=== PATIENT | male | born 1995 | race Hispanic/Latino ===

== ENCOUNTER 2019-07-28 22:46 | Emergency (ER) | payer MEDICAID ==
[~2019-07-28] VITALS: Ht 175.3 cm; Wt 56.7 kg
[2019-07-28] MEDS ORDERED: CYCLOBENZAPRINE10 MG PO (23:25)
[2019-07-28] MEDS ORDERED: TRAMADOL HCL50 MG PO (23:25)
== END 2019-07-28 23:52 | disposition home or self-care (01) ==
LOC: ED 22:46
DX: S29.012A Strain of muscle and tendon of back wall of thorax, initial encounter (principal); F17.200 Nicotine dependence, unspecified, uncomplicated; Z91.041 Radiographic dye allergy status; X58.XXXA Exposure to other specified factors, initial encounter
CPT/HCPCS: 73030; 96372; 99283; J1885

== ENCOUNTER 2019-07-31 15:27 | Emergency (ER) | payer MEDICAID ==
[~2019-07-31] VITALS: Ht 175.3 cm; Wt 56.7 kg
[~2019-07-31 15:27] MED LIST: CYCLOBENZAPRINE10 MG PO; TRAMADOL HCL50 MG PO
--- OUTSIDE RECORDS SUMMARY | 2019-07-31 15:30 | XMS ---
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 No recent Security Events currently on file CRITERIA MET - [facility] - 2 Visits in 30 Days CARE PROVIDERS Pamela Fisher/[facility] PHONE: [phone] [facility] 06/07/2019-[facility] - [place] PHONE: [phone] BRITT[facility] 05/01/2019-[facility] PRIMARY CARE PHONE: [phone] [facility] Care 06/07/2019-[facility] GROUP - [facility] PHONE: Unknown [facility] Primary Care 05/01/2019-Current PRIMARY CARE [facility]ANY PHONE: [phone] [facility] Other 08/15/2013-[facility] [place] PHONE: Unknown SPENSER Marquez or [employer] Current PHONE: Unknown Lizzy has no Care Guidelines for this patient. Tereso VISIT COUNT (12 MO.) 2 [facility] TOTAL 2 NOTE: Visits indicate total known visits. ED/UCC VISIT TRACKING (12 MO.) 07/31/2019 15:28 [facility] [place] TYPE: Emergency COMPLAINT: - MEDICAL CLEARANCE 07/28/2019 22:46 [facility] [place] TYPE: Emergency COMPLAINT: - SHOULDER PAIN INPATIENT VISIT TRACKING (12 MO.) No inpatient visits to display in this time frame [email or web address]
[2019-07-31] MEDS ORDERED: NEURONTIN100 MG PO (16:04)
== END 2019-07-31 18:15 | disposition home or self-care (01) ==
LOC: ED 15:27
DX: R45.851 Suicidal ideations (principal); Z00.8 Encounter for other general examination; F17.200 Nicotine dependence, unspecified, uncomplicated; Z91.041 Radiographic dye allergy status
CPT/HCPCS: 80053; 80176; 81001; 84443; 85025; 99283; G0480